=== PATIENT | female | born 2000 | race Caucasian/White ===

== ENCOUNTER 2018-07-29 21:19 | Emergency (ER) | payer BC ==
--- NOTE | 2018-07-29 23:56 | EKG REPORT ---
SEVERITY:- BORDERLINE ECG - SINUS RHYTHM BORDERLINE T ABNORMALITIES, INFERIOR LEADS : Confirmed by: Mikhail Ramirez 29-Jul-2018 23:56:02
== END 2018-07-29 21:50 | disposition left against medical advice (07) ==
LOC: ER 21:19
DX: Z53.21 Procedure and treatment not carried out due to patient leaving prior to being seen by health care provider (principal)
CPT/HCPCS: 93005; 93010

== ENCOUNTER 2019-05-04 07:15 | Emergency (ER) | payer BC ==
--- NOTE | 2019-05-04 08:29 | ER Document Report ---
ED GI Bleed / Rectal Pain - General Chief Complaint: Black/Tarry Stools Stated Complaint: BLACK STOOLS,ABDOMINAL PAIN Time Seen by Provider: 05/04/19 08:26 Primary Care Provider: RUTHANN MARTINEZ NP [Primary Care Provider] - Follow up as needed Notes: Patient taken over by Dr. Velarde, after initial evaluation, care and disposition by Dr. Velarde TRAVEL OUTSIDE OF THE [place] IN LAST 30 DAYS: No - Related Data Allergies/Adverse Reactions: codeine Allergy (Verified 05/04/19 07:28) Past Medical History - Social History Smoking Status: Never Smoker Chew tobacco use (# tins/day): No Frequency of alcohol use: None Drug Abuse: None Family History: Reviewed & Not Pertinent Patient has suicidal ideation: No Patient has homicidal ideation: No Psychiatric Medical History: Reports: Hx Depression Physical Exam - Vital signs Vitals: Temp Pulse Resp BP Pulse Ox 98.7 F 117 H 20 133/71 H 100 05/04/19 07:20 05/04/19 07:20 05/04/19 07:20 05/04/19 07:20 05/04/19 07:20 Course - Vital Signs Vital signs: Temp Pulse Resp BP Pulse Ox 98.9 F 85 18 112/63 100 05/04/19 11:29 05/04/19 11:29 05/04/19 11:29 05/04/19 11:29 05/04/19 11:29 - Laboratory Result Diagrams: 05/04/19 09:00 05/04/19 09:00 Laboratory results interpreted by me: 05/04/19 05/04/19 05/04/19 09:00 09:00 09:20 Seg Neutrophils % 78.6 H Calcium 10.5 H Urine Blood SMALL H Discharge - Discharge Clinical Impression: Dark stools Condition: Stable Disposition: HOME, SELF-CARE Additional Instructions: Your bowel movements today appear to be dark. The test for blood in the stool was negative. Your hemoglobin is 14.9 which is in the upper range of normal for a non-smoking female who has menstrual periods. You should follow-up with your primary care provider if the stool pattern does not change back to normal. RETURN TO THE EMERGENCY ROOM IF ANY NEW OR WORSENING SYMPTOMS. Referrals: RUTHANN MARTINEZ NP [Primary Care Provider] - Follow up as needed
[2019-05-04 09:24] LABS: ABSOLUTE EOSINOPHILS # (AUTO) 0.1 10^3/uL (0.0-0.6); ABSOLUTE LYMPHOCYTES (AUTO) 1.2 10^3/uL (0.5-4.7); ABSOLUTE MONOCYTES (AUTO) 0.5 10^3/uL (0.1-1.4); ABSOLUTE NEUT (AUTO) 6.5 10^3/uL (1.7-8.2); BASOPHILS % (AUTO) 0.3 % (0-2); EOSINOPHILS % (AUTO) 0.6 % (0-6); HEMATOCRIT 43.1 % (36.0-47.0); HEMOGLOBIN 14.9 g/dL (12.0-15.5); LYMPHOCYTES % (AUTO) 14.3 % (13-45); MEAN CORPUSCULAR HEMOGLOBIN 30.6 pg (27.0-33.4); MEAN CORPUSCULAR HGB CONC 34.5 g/dL (32.0-36.0); MEAN CORPUSCULAR VOLUME 89 fl (80-97); MONOCYTES % (AUTO) 6.2 % (3-13); PLATELET COUNT 328 10^3/uL (150-450); RED BLOOD COUNT 4.87 10^6/uL (3.72-5.28); RED CELL DISTRIBUTION WIDTH 12.8 % (11.5-14.0); SEGMENTED NEUTROPHILS % (AUTO) 78.6 % (42-78); TOTAL CELLS COUNTED % (AUTO) 100 %; WHITE BLOOD COUNT 8.3 10^3/uL (4.0-10.5)
[2019-05-04 09:31] LABS: INTERNATIONAL RATION (INR) 1.06; PROTHROMBIN TIME 13.8 SEC (11.4-15.4)
[2019-05-04 09:35] LABS: APPEARANCE,URINE CLEAR; BILIRUBIN,URINE NEGATIVE (NEGATIVE); COLOR,URINE STRAW; GLUCOSE, URINE NEGATIVE (NEGATIVE); KETONES,URINE NEGATIVE (NEGATIVE); LEUKOCYTE ESTERASE,URINE NEGATIVE (NEGATIVE); NITRITE,URINE NEGATIVE (NEGATIVE); PROTEIN,URINE NEGATIVE (NEGATIVE); UROBILINOGEN,URINE NEGATIVE mg/dL (<2.0)
[2019-05-04 09:44] LABS: ALKALINE PHOSPHATASE 69 U/L (38-126); ANION GAP 13 (5-19); ASPARTATE AMINO TRANSFERASE 27 U/L (14-36); BILIRUBIN,DIRECT 0.3 mg/dL (0.0-0.4); BILIRUBIN,TOTAL 0.4 mg/dL (0.2-1.3); BLOOD UREA NITROGEN 10 mg/dL (7-20); CALCIUM 10.5 mg/dL (8.4-10.2); CARBON DIOXIDE 23 mmol/L (22-30); CHLORIDE 107 mmol/L (98-107); GLUCOSE 95 mg/dL (75-110); POTASSIUM 4.3 mmol/L (3.6-5.0)
--- NOTE | 2019-05-04 09:45 | ER Document Report ---
Entered by ANEL MUNOZ SCRIBE 05/04/19 0907 Acting as scribe for:HEATH LARRY MD ED General - General Chief Complaint: Black/Tarry Stools Stated Complaint: BLACK STOOLS,ABDOMINAL PAIN Time Seen by Provider: 05/04/19 08:26 Primary Care Provider: RUTHANN MARTINEZ NP [Primary Care Provider] - Follow up as needed Mode of Arrival: Ambulatory Information source: Patient Notes: This 19 year old female patient presents to the ED today with complaints of black, tarry stools that began this morning. Patient reports right-sided abdominal pain that began x1 day ago, but denies abnormal stools at that time. Patient states that she has not taken any Pepto Bismol recently. Patient notes that she does not take NSAIDs regularly. Patient's stool was tested prior to being seen by a physician and was heme negative. TRAVEL OUTSIDE OF THE [place] IN LAST 30 DAYS: No - Related Data Allergies/Adverse Reactions: codeine Allergy (Verified 05/04/19 07:28) Past Medical History - General Information source: Patient - Social History Smoking Status: Never Smoker Chew tobacco use (# tins/day): No Smoking Education Provided: No Frequency of alcohol use: None Drug Abuse: None Family History: Reviewed & Not Pertinent Patient has suicidal ideation: No Patient has homicidal ideation: No Psychiatric Medical History: Reports: Hx Depression Past Surgical History: Reports: None Review of Systems - Review of Systems Constitutional: No symptoms reported EENT: No symptoms reported Cardiovascular: No symptoms reported Respiratory: No symptoms reported Gastrointestinal: See HPI, Abdominal pain, Black stools Genitourinary: No symptoms reported Female Genitourinary: No symptoms reported Musculoskeletal: No symptoms reported Skin: No symptoms reported Hematologic/Lymphatic: No symptoms reported Neurological/Psychological: No symptoms reported -: Yes All other systems reviewed and negative Physical Exam - Vital signs Vitals: Temp Pulse Resp BP Pulse Ox 98.7 F 117 H 20 133/71 H 100 05/04/19 07:20 05/04/19 07:20 05/04/19 07:20 05/04/19 07:20 05/04/19 07:20 - General General appearance: Appears well, Alert - HEENT Head: Normocephalic, Atraumatic Eyes: Normal Pupils: PERRL - Respiratory Respiratory status: No respiratory distress Chest status: Nontender Breath sounds: Normal Chest palpation: Normal - Cardiovascular Rhythm: Regular Heart sounds: Normal auscultation Murmur: No - Abdominal Inspection: Other - Scratches noted on RLQ and lateral abdomen Distension: No distension Bowel sounds: Normal - Active bowel sounds Tenderness: Tender - Abdomen is diffusely tender to palpation., Other - Abdomen soft Organomegaly: No organomegaly - Rectal Stool: Heme negative, Black - Back Back: Normal, Nontender - Extremities General upper extremity: Normal inspection General lower extremity: Normal inspection - Neurological Neuro grossly intact: Yes - Psychological Associated symptoms: Normal affect, Normal mood - Skin Skin Temperature: Warm Skin Moisture: Dry Skin Color: Normal Course - Re-evaluation Re-evalutation: 05/04/19 11:26 Patient's hemoglobin is 14.9, stool Hemoccult was negative. There is no leukocytosis. Chem-12 and urine are unremarkable. KUB is unremarkable. The patient's stool was dark in color, but there is no clear explanation for this at this time. - Vital Signs Vital signs: Temp Pulse Resp BP Pulse Ox 98.9 F 87 16 118/63 100 05/04/19 09:27 05/04/19 09:27 05/04/19 09:27 05/04/19 09:27 05/04/19 09:27 - Laboratory Result Diagrams: 05/04/19 09:00 05/04/19 09:00 Laboratory results interpreted by me: 05/04/19 05/04/19 05/04/19 09:00 09:00 09:20 Seg Neutrophils % 78.6 H Calcium 10.5 H Urine Blood SMALL H - Diagnostic Test Radiology reviewed: Image reviewed - KUB shows a lot of stool in the colon but is otherwise unremarkable. Discharge - Discharge Clinical Impression: Dark stools Condition: Stable Disposition: HOME, SELF-CARE Additional Instructions: Your bowel movements today appear to be dark. The test for blood in the stool was negative. Your hemoglobin is 14.9 which is in the upper range of normal for a non-smoking female who has menstrual periods. You should follow-up with your primary care provider if the stool pattern does not change back to normal. RETURN TO THE EMERGENCY ROOM IF ANY NEW OR WORSENING SYMPTOMS. Referrals: RUTHANN MARTINEZ NP [Primary Care Provider] - Follow up as needed Klarissaibzulay Attestation: 05/04/19 10:42 I personally performed the services described in the documentation, reviewed and edited the documentation which was dictated to the scribe in my presence, and it accurately records my words and actions. I personally performed the services described in the documentation, reviewed and edited the documentation which was dictated to the scribe in my presence, and it accurately records my words and actions.
--- NOTE | 2019-05-04 11:01 | RADIOLOGY REPORT (SQ) ---
EXAM DESCRIPTION: KUB/ABDOMEN (SINGLE VIEW) COMPLETED DATE/TIME: 05/04/2019 10:53 am REASON FOR STUDY: Abdominal pain with dark stools COMPARISON: None. NUMBER OF VIEWS: One view. TECHNIQUE: Supine radiographic image of the abdomen acquired. LIMITATIONS: None. FINDINGS: BOWEL GAS PATTERN: Normal bowel gas pattern. No dilated loops. CALCIFICATIONS: No suspicious calcifications. SOFT TISSUES: No gross mass or suggestion of organomegaly. HARDWARE: None in the abdomen. BONES: No acute fracture. No worrisome bone lesions. OTHER: No other significant finding. IMPRESSION: NO RADIOGRAPHIC EVIDENCE FOR ACUTE ABDOMINAL DISEASE. TECHNICAL DOCUMENTATION: JOB ID: [id number] [employer] All Rights Reserved Reading location - IP/workstation name: [email or web address]
[2019-05-04 11:31] VITALS: BP 112/63
== END 2019-05-04 11:29 | disposition home or self-care (01) ==
LOC: ER 07:15
DX: R19.5 Other fecal abnormalities (principal); R10.9 Unspecified abdominal pain; S30.811A Abrasion of abdominal wall, initial encounter; X58.XXXA Exposure to other specified factors, initial encounter
CPT/HCPCS: 36415; 74018; 80053; 81001; 84703; 85025; 85610; 99284

== ENCOUNTER 2020-03-19 09:57 | Emergency (ER) | payer BC ==
[2020-03-19] MEDS ORDERED: IBUPROFEN 600 MG TABLET PO ONE (10:28)
--- NOTE | 2020-03-19 11:07 | ER Document Report ---
ED General - General Chief Complaint: Sore Throat Stated Complaint: SORE THROAT,NAUSEA,BODY ACHES Time Seen by Provider: 03/19/20 10:13 Primary Care Provider: DELIO MANZANARES MD [Primary Care Provider] - Follow up as needed Notes: Patient presents with a month of sore throat worse in the morning history of postnasal drip induced by psych meds, no fevers enlarged lymph nodes or shortness of breath or cough. She thought she had a spot on one of her tonsils that her boyfriend took a picture of. She had a negative flu and Covid test and strep test all in the last 48 hours. She also has "painful bladder syndrome and history of interstitial cystitis as well as obsessive-compulsive disease. She gets "waves of nausea" with intermittent back pain throughout the day. Furia other than her chronic changes from "painful bladder syndrome" TRAVEL OUTSIDE OF THE [place] IN LAST 30 DAYS: No - Related Data Allergies/Adverse Reactions: cephalexin Allergy (Verified 03/19/20 10:48) codeine Allergy (Verified 03/19/20 10:48) Past Medical History - General Information source: Patient - Social History Smoking Status: Never Smoker Family History: Reviewed & Not Pertinent Psychiatric Medical History: Reports: Hx Depression Review of Systems - Review of Systems Notes: REVIEW OF SYSTEMS GEN: Denies fever, chills, weight loss ENT: See HPI EYES: Denies blurry vision, eye pain, discharge CV: Denies chest pain, palpitations, edema RESP: HPI GI: PI a MSK: Denies joint pain/swelling, edema, SKIN: Denies rash, skin lesions LYMPH: Denies swollen glands/lymph nodes NEURO: Denies headache, focal weakness or numbness, dizziness PSYCH: Denies depression, suicidal or homicidal ideation PHYSICAL EXAMINATION General: No acute distress, well-nourished Head: Atraumatic, normocephalic ENT: Mouth normal, oropharynx moist, no exudates or tonsillar enlargement Eyes: Conjunctiva normal, pupils equal, lids normal Neck: No JVD, supple, no guarding CVS: Normal rate, regular rhythm, no murmurs Resp: No resp distress, equal and normal breath sounds bilaterally GI: Nondistended, soft, no tenderness to palpation, no rebound or guarding Ext: No deformities, no edema, normal range of motion in upper and lower ext Back: No CVA or midline TTP Skin: No rash, warm Lymphatic: No lymphadeopathy noted Neuro: Awake, alert. Face symmetric. GCS 15. Physical Exam - Vital signs Vitals: Temp Pulse Resp BP Pulse Ox 98.8 F 90 16 126/66 H 100 03/19/20 10:10 03/19/20 10:10 03/19/20 10:10 03/19/20 10:10 03/19/20 10:10 Course - Re-evaluation Re-evalutation: 03/19/20 11:06 URI versus postnasal drip, no evidence of severe disease including recent testing and physical exam no lymphadenopathy suggest mono Rule out UTI Zofran for home discharge follow-up primary care I have discussed with the patient there likely diagnosis, aftercare plan, follow-up plans and my usual and customary return precautions. They verbalized understanding of this. 03/19/20 18:52 Negative UA - Vital Signs Vital signs: Temp Pulse Resp BP Pulse Ox 98.5 F 92 16 125/63 100 03/19/20 11:51 03/19/20 11:51 03/19/20 11:51 03/19/20 11:51 03/19/20 11:51 Discharge - Discharge Clinical Impression: Sore throat Condition: Good Disposition: HOME, SELF-CARE Instructions: Sore Throat ([facility]) Prescriptions: Ondansetron [Zofran Odt 4 mg Tablet] 1 - 2 tab PO Q4H PRN #15 tab.rapdis PRN Reason: For Nausea/Vomiting Referrals: DELIO MANZANARES MD [Primary Care Provider] - Follow up as needed
[2020-03-19 11:45] LABS: APPEARANCE,URINE CLEAR; BILIRUBIN,URINE NEGATIVE (NEGATIVE); COLOR,URINE STRAW; GLUCOSE, URINE NEGATIVE (NEGATIVE); KETONES,URINE NEGATIVE (NEGATIVE); LEUKOCYTE ESTERASE,URINE NEGATIVE (NEGATIVE); NITRITE,URINE NEGATIVE (NEGATIVE); PROTEIN,URINE NEGATIVE (NEGATIVE); URINE SPECIFIC GRAVITY 1.008; UROBILINOGEN,URINE NEGATIVE mg/dL (<2.0)
[2020-03-19 12:05] VITALS: BP 125/63
== END 2020-03-19 11:50 | disposition home or self-care (01) ==
LOC: ER 09:57
DX: J02.9 Acute pharyngitis, unspecified (principal); R09.82 Postnasal drip; Z88.6 Allergy status to analgesic agent
CPT/HCPCS: 81001; 99283